=== PATIENT | male | born 1980 ===

== ENCOUNTER 2020-10-02 11:03 | Emergency (ER) | payer MEDICAID, SELFPAY ==
--- NOTE | ~2020-10-02 | XR_ITS ---
EXAMINATION: XR SHOULDER, LEFT CLINICAL INFORMATION: Pain status-post fall. COMPARISON: None TECHNIQUE: AP external rotation, Grashey, scapular Y, and axillary views of the left shoulder. FINDINGS: Bony alignment and mineralization are normal. The glenohumeral joint is intact. The acromioclavicular and coracoclavicular intervals are normal. No fracture or dislocation is seen. There is a small distal acromial undersurface osteophyte. There is mild calcific tendinitis of the left rotator cuff insertion. No foreign body is seen. There is no left pneumothorax. XR/XR sacrum coccyx min 2V IMPRESSION: 1. No acute fracture or dislocation is seen. 2. There is mild calcific tendinitis of the left rotator cuff insertion. EXAMINATION: XR SACRUM AND COCCYX CLINICAL INFORMATION: Pain status-post fall. COMPARISON: None TECHNIQUE: 3 frontal and lateral views of the sacrum and coccyx were obtained. FINDINGS: Bony mineralization is normal. On the lateral view, there is the question of a mildly displaced fracture of one of the upper coccygeal segments, possibly the first and second segments. No soft tissue gas or foreign body is seen. IMPRESSION: Findings are suspicious for a nondisplaced upper coccygeal fracture. Recommend clinical correlation.
--- NOTE | ~2020-10-02 | XR_ITS ---
EXAMINATION: XR SHOULDER, LEFT CLINICAL INFORMATION: Pain status-post fall. COMPARISON: None TECHNIQUE: AP external rotation, Grashey, scapular Y, and axillary views of the left shoulder. FINDINGS: Bony alignment and mineralization are normal. The glenohumeral joint is intact. The acromioclavicular and coracoclavicular intervals are normal. No fracture or dislocation is seen. There is a small distal acromial undersurface osteophyte. There is mild calcific tendinitis of the left rotator cuff insertion. No foreign body is seen. There is no left pneumothorax. XR/XR shoulder LT min 2V IMPRESSION: 1. No acute fracture or dislocation is seen. 2. There is mild calcific tendinitis of the left rotator cuff insertion. EXAMINATION: XR SACRUM AND COCCYX CLINICAL INFORMATION: Pain status-post fall. COMPARISON: None TECHNIQUE: 3 frontal and lateral views of the sacrum and coccyx were obtained. FINDINGS: Bony mineralization is normal. On the lateral view, there is the question of a mildly displaced fracture of one of the upper coccygeal segments, possibly the first and second segments. No soft tissue gas or foreign body is seen. IMPRESSION: Findings are suspicious for a nondisplaced upper coccygeal fracture. Recommend clinical correlation.
[2020-10-02 12:11] VITALS: BP 134/77; PULSE 71; RESP 16; TEMP 36.3; O2SAT 99; BMI 32.6
--- NOTE | 2020-10-02 12:37 | ED_ITS ---
HPI - General Adult General Chief complaint: Fall Stated complaint: Fell down the stairs Time Seen by Provider: 10/02/20 12:13 Source: patient Limitations: no limitations History of Present Illness HPI narrative: Patient presents to the ER after falling down his apartment stairs. Patient states he slipped on water that she had not been there. Patient complaining of left shoulder pain and lower back buttocks pain. Patient landed on his buttocks 1st and then left shoulder. Pain 7/10 increases with range of motion. Patient denies loss consciousness some dizziness. No other complaints at this time. Symptoms mild to moderate. Related Data Previous Rx's Medication Instructions Recorded docusate sodium 100 mg capsule 100 mg PO DAILY #20 cap 10/02/20 (Colace) naproxen 500 mg tablet,delayed 500 mg PO BID PRN #30 tab 10/02/20 release (EC-Naprosyn) tramadol 50 mg tablet 50 mg PO BID PRN #14 tab 10/02/20 Allergies Allergy/AdvReac Type Severity Reaction Status Date / Time Penicillins Allergy Rash Verified 10/02/20 12:17 Review of Systems Review of Systems: Constitutional : No Weight loss, No Fever, No Chills, No Night Sweats, No Fatigue, No Malaise Eyes: No Eye Pain, No Swelling, No Redness Cardiovascular : No Chest Pain, No SOB, Respiratory : No Cough, No Sputum, No Wheezing Gastrointestinal : No Nausea, No Vomiting Musculoskeletal : Left shoulder pain lower back pain and coccyx pain Neuro : No Weakness, No Numbness, No Paresthesias, No Loss of Consciousness, positive Dizziness, No Headache Psych : No Anxiety/Panic, No Depression, No SI/HI/AH/VH, No Social Issues, Heme/Lymph: No Bruising, No Bleeding,No Lymphadenopathy Endocrine : No Polyuria, No Polydipsia, No Temperature Intolerance PMFSH Past Medical History Attestation statement: The following information was validated with the patient. Medical History No known health problems Surgical History History of colon surgery Social History Social History Advance Directives: Yes Advance Directives Information Provided: Yes Advance Directives on File: No Physical Exam Vital Signs: Vital Signs: Last Vital Signs Temp 97.3 F 10/02/20 12:11 Pulse 71 10/02/20 12:11 Resp 16 10/02/20 12:11 BP 134/77 10/02/20 12:11 Pulse Ox 99 10/02/20 12:11 Body Mass Index 32.6 vital signs have been reviewed as normal and appeared to be correct. Blood pressure normal. Heart rate normal. Respiration rate normal. Temperature normal. Oxygen saturation normal. Appearance: Alert. Oriented X3. No acute distress. Head: Normal external exam. Normocephalic. Atraumatic. No Hernándze signs noted. No raccoon eyes noted Eyes: PERRLA. EOMI. Conjunctiva and sclera normal. Eyelids normal. ENT: Pharynx normal. Uvula midline. Moist mucous membranes. Neck: Soft full range of motion CVS: Heart regular rate and rhythm no murmurs and rubs Respiratory: Breath sounds are clear to auscultation bilaterally. No accessory muscle use noted. Abdomen: Soft nontender no rebound or guarding positive bowel sounds Back: Slight tenderness located the sacrum coccyx no overt lumbar paraspinal muscle tenderness and midline tenderness to the lumbar thoracic spine. Skin: Skin warm and dry. Normal skin color. No ecchymosis noted Extremities: Diffuse tenderness of the left shoulder no crepitus pain increases with range of motion Neuro: Oriented X 3. No motor deficit. No sensory deficit. Reflexes normal. No ataxia Course Course Course Narrative: Left shoulder fracture Left shoulder contusion Coccyx fracture Coccyx contusion Left shoulder x-ray pending sacrum coccyx film also pending Coccyx x-rays shows clinical concerns for coccyx fracture will treat accordingly left shoulder shows underlying calcific tendinitis likely not secondary to trauma. Medical Decision Making Imaging Data cocyx: Radiologist's impression: atient: Rafaela Mcmahon#: [id number]: 1980Acct:[id number]/Sex: 39 / MADM Date: 10/02/20[facility]: [facility]: Ordering Physician: Sathya Guevara Date of Service: 10/02/20 Procedure(s): XR shoulder LT min 2V Accession Number(s): [id number] cc: Sathya Guevara ~ EXAMINATION: XR SHOULDER, LEFT CLINICAL INFORMATION: Pain status-post fall. COMPARISON: None TECHNIQUE: AP external rotation, Grashey, scapular Y, and axillary views of the left shoulder. FINDINGS: Bony alignment and mineralization are normal. The glenohumeral joint is intact. The acromioclavicular and coracoclavicular intervals are normal. No fracture or dislocation is seen. There is a small distal acromial undersurface osteophyte. There is mild calcific tendinitis of the left rotator cuff insertion. No foreign body is seen. There is no left pneumothorax. XR/XR shoulder LT min 2V IMPRESSION: 1. No acute fracture or dislocation is seen. 2. There is mild calcific tendinitis of the left rotator cuff insertion. EXAMINATION: XR SACRUM AND COCCYX CLINICAL INFORMATION: Pain status-post fall. COMPARISON: None TECHNIQUE: 3 frontal and lateral views of the sacrum and coccyx were obtained. FINDINGS: Bony mineralization is normal. On the lateral view, there is the question of a mildly displaced fracture of one of the upper coccygeal segments, possibly the first and second segments. No soft tissue gas or foreign body is seen. IMPRESSION: Findings are suspicious for a nondisplaced upper coccygeal fracture. Recommend clinical correlation. Dictated By:Parmjit Mckay MDSigned By:<Electronically signed by Parmjit Mckay MD in [place]>10/02/20 1252 DD/ 1217TD/TT: Air Compressor Engineer: [place] [id number] XRay Report Signed Patient: Chad Mcmahon MR#: [id number] : 1980 Acct:[id number] Age/Sex: 39 / M ADM Date: 10/02/20 Loc: .ED Attending Dr: Ordering Physician: Sathya Guevara Date of Service: 10/02/20 Procedure(s): XR sacrum coccyx min 2V Accession Number(s): [id number] cc: Sathya Guevara ~ EXAMINATION: XR SHOULDER, LEFT CLINICAL INFORMATION: Pain status-post fall.? COMPARISON: None? TECHNIQUE: AP external rotation, Grashey, scapular Y, and axillary views of the left shoulder. FINDINGS: Bony alignment and mineralization are normal. The glenohumeral joint is intact. The acromioclavicular and coracoclavicular intervals are normal. No fracture or dislocation is seen. There is a small distal acromial undersurface osteophyte. There is mild calcific tendinitis of the left rotator cuff insertion. No foreign body is seen. There is no left pneumothorax.? XR/XR sacrum coccyx min 2V IMPRESSION: ? 1. No acute fracture or dislocation is seen. ? 2. There is mild calcific tendinitis of the left rotator cuff insertion. ? ? EXAMINATION: XR SACRUM AND COCCYX ? CLINICAL INFORMATION: Pain status-post fall. ? COMPARISON: None ? TECHNIQUE: 3 frontal and lateral views of the sacrum and coccyx were obtained. ? FINDINGS: Bony mineralization is normal. On the lateral view, there is the question of a mildly displaced fracture of one of the upper coccygeal segments, possibly the first and second segments. No soft tissue gas or foreign body is seen. ? IMPRESSION: Findings are suspicious for a nondisplaced upper coccygeal fracture. Recommend clinical correlation. Dictated By: Parmjit Mckay MD Signed By: <Electronically signed by Parmjit Mckay MD in [place]> 10/02/20 1252 DD/ 1217 TD/TT:? Air Compressor Engineer: SARTHAK Discharge Plan Discharge Clinical Impression: Fractured coccyx Patient Disposition: Home, Self-Care Instructions: Coccyx Injury (ED) Additional Instructions: X-ray shows clinical signs of coccyx fracture at ?tailbone? Left shoulder x-ray showed no acute findings but some underlying calcified tendinitis of the rotator cuff Prescriptions: New docusate sodium [Colace] 100 mg capsule 100 mg PO DAILY Qty: 20 RF: 0 naproxen [EC-Naprosyn] 500 mg tablet,delayed release (DR/EC) 500 mg PO BID PRN (Reason: pain) Qty: 30 RF: 0 tramadol 50 mg tablet 50 mg PO BID PRN (Reason: pain) Qty: 14 RF: 0
== END 2020-10-02 13:19 | disposition home or self-care (01) ==
PROVIDERS: Emergency Provider Internal Medicine
DX: S32.2XXA Fracture of coccyx, initial encounter for closed fracture (principal); W10.8XXA Fall (on) (from) other stairs and steps, initial encounter; M75.32 Calcific tendinitis of left shoulder; M25.512 Pain in left shoulder; Y93.89 Activity, other specified; Y92.038 Other place in apartment as the place of occurrence of the external cause; Y99.9 Unspecified external cause status
CPT/HCPCS: 72220; 73030; 99283